=== PATIENT | female | born 1990 | race Caucasian/White ===

== ENCOUNTER 2019-09-07 10:23 | Emergency (ER) | payer OTHER ==
[~2019-09-07] VITALS: Ht 170.2 cm; Wt 135.6 kg
[2019-09-07 10:36] VITALS: BP 155/86
--- NOTE | 2019-09-07 11:28 | RAD ---
Examination: 3 views of the left hand HISTORY: History of fall, pain COMPARISON: None available Findings/ impression: Mild displaced intra-articular fracture of the medial base of the proximal phalanx of the third digit. Electronically signed by: Rangel Walters MD (09/07/2019 11:26 AM) [id number]
--- NOTE | 2019-09-07 11:40 | PHYS DOC ---
Past History Past Medical History: Anxiety, Depression Past Surgical History: Cholecystectomy Alcohol Use: Occasionally Drug Use: None Adult General Chief Complaint Chief Complaint: HAND PROBLEM HPI HPI 29-year-old female presents with left third digit pain. The patient got really drunk 3 days ago and when she came home and was taking off her clothes she fell and struck her finger on something. She knew she hyperextended it. She thought was just sprained, but it continues to be swollen and has significant pain. She wanted to make sure she didn't have a fracture. She denies any other injuries or complaints. Review of Systems Review of Systems Constitutional: Denies fever or chills [] Eyes: Denies change in visual acuity, redness, or eye pain [] HENT: Denies nasal congestion or sore throat [] Respiratory: Denies cough or shortness of breath [] Cardiovascular: No additional information not addressed in HPI [] GI: Denies abdominal pain, nausea, vomiting, bloody stools or diarrhea [] : Denies dysuria or hematuria [] Musculoskeletal: Left third digit pain[] Integument: Denies rash or skin lesions [] Neurologic: Denies headache, focal weakness or sensory changes [] Endocrine: Denies polyuria or polydipsia [] All other systems were reviewed and found to be within normal limits, except as documented in this note. Allergies Allergies Allergies Coded Allergies Type Severity Reaction Last Updated Verified codeine Allergy Unknown 09/07/19 Yes Physical Exam Physical Exam Constitutional: Well developed, well nourished, no acute distress, non-toxic appearance. [] HENT: Normocephalic, atraumatic, bilateral external ears normal, oropharynx moist, no oral exudates, nose normal. [] Eyes: PERRLA, EOMI, conjunctiva normal, no discharge. [] Neck: Normal range of motion, no tenderness, supple, no stridor. [] Cardiovascular:Heart rate regular rhythm, no murmur [] Lungs & Thorax: Bilateral breath sounds clear to auscultation [] Abdomen: Bowel sounds normal, soft, no tenderness, no masses, no pulsatile masses. [] Skin: Warm, dry, no erythema, no rash. [] Back: No tenderness, no CVA tenderness. [] Extremities: Tenderness, swelling, ecchymosis at the base of the left third digit. Patient is able to flex and extend. Cap refill normal[] Neurologic: Alert and oriented X 3, normal motor function, normal sensory function, no focal deficits noted. [] Psychologic: Affect normal, judgement normal, mood normal. [] Current Patient Data Vital Signs Vital Signs Date Time Temp Pulse Resp B/P (MAP) Pulse Ox O2 Delivery O2 Flow Rate FiO2 09/07/19 10:36 98.2 67 18 97 Room Air EKG EKG [] Radiology/Procedures Radiology/Procedures [] Impressions: Examination: 3 views of the left hand HISTORY: History of fall, pain COMPARISON: None available Findings/ impression: Mild displaced intra-articular fracture of the medial base of the proximal phalanx of the third digit. Electronically signed by: Rangel Walters MD (09/07/2019 11:26 AM) [id number] DICTATED AND SIGNED BY: RANGEL WALTERS MD DATE: 09/07/19 1126 CC: ESTEBAN GUTIÉRREZ DO; PCP,NO ~ Course & Med Decision Making Course & Med Decision Making Pertinent Labs and Imaging studies reviewed. (See chart for details) The patient has a fracture of the base of the left third proximal phalanx. Intact. Tendon function appears normal. Place her in a splint and advised that she follow up with orthopedics. She is stable for discharge at this time. [] Dragon Disclaimer Dragon Disclaimer This electronic medical record was generated, in whole or in part, using a voice recognition dictation system. Departure Departure: Impression: Primary Impression: Finger fracture, left Disposition: 01 HOME, SELF-CARE Condition: STABLE Referrals: PCP,NO (PCP) Patient Instructions: Finger Fracture, [id number] Additional Instructions: Please call the [facility] at [phone] to discuss further treatment of your finger fracture. Problem Qualifiers Primary Impression: Finger fracture, left Encounter type: initial encounter Finger: middle finger Fracture type: closed Phalanx: proximal Fracture alignment: nondisplaced Qualified Codes: S62.643A - Nondisplaced fracture of proximal phalanx of left middle finger, initial encounter for closed fracture ESTEBAN GUTIÉRREZ DO Sep 07, 2019 11:40
== END 2019-09-07 11:52 | disposition home or self-care (01) ==
LOC: ER 10:23
DX: S62.643A Nondisplaced fracture of proximal phalanx of left middle finger, initial encounter for closed fracture (principal); Z88.5 Allergy status to narcotic agent; W18.09XA Striking against other object with subsequent fall, initial encounter; Y93.89 Activity, other specified; Y92.89 Other specified places as the place of occurrence of the external cause; Y99.8 Other external cause status
CPT/HCPCS: 29130; 73130; 99284

== ENCOUNTER 2022-03-16 17:07 | Emergency (ER) | payer OTHER ==
[~2022-03-16] VITALS: Ht 170.2 cm; Wt 146.9 kg
[2022-03-16 17:07] VITALS: BP 134/84
[2022-03-16] MEDS ORDERED: AMOX500T PO (18:20)
--- NOTE | 2022-03-16 18:20 | PHYS DOC ---
Past History Past Medical History: Anxiety, Depression (MCKENZIE SANTOS APRN) Past Surgical History: Cholecystectomy (MCKENZIE SANTOS APRN) Alcohol Use: Occasionally Drug Use: None (MCKENZIE SANTOS APRN) General Adult EDM: Chief Complaint: SORE THROAT HPI: HPI: Patient is a 32-year-old female who presents with sore throat. 2 days ago. Denies fever. Complains of loss of voice and feels like she is "swallowing glass". Denies nausea/vomiting/diarrhea. (MCKENZIE SANTOS APRN) Review of Systems: Review of Systems: ROS At least 10 ROS systems have been reviewed and are negative except as documented in the HPI. General: Negative except as outlined in HPI above. Skin: Negative except as outlined in HPI above. HEENT: Negative except as outlined in HPI above. Neck: Negative except as outlined in HPI above. Respiratory: Negative except as outlined in HPI above.. Cardiovascular: Negative except as outlined in HPI above. Abdomen: Negative except as outlined in HPI above. : Negative except as outlined in HPI above. Back/MSK: Negative except as outlined in HPI above. Neuro: Negative except as outlined in HPI above. Psych: Negative except as outlined in HPI above. (MCKENZIE SANTOS APRN) Allergies: Allergies: Allergies Coded Allergies Type Severity Reaction Last Updated Verified codeine Allergy Unknown 09/07/19 Yes (MCKENZIE SANTOS APRN) Physical Exam: PE: Constitutional: Well developed, well nourished, no acute distress, non-toxic appearance. [] HENT: Normocephalic, atraumatic, bilateral external ears normal, oropharynx moist, oral exudates seen, cervical lymphadenopathy Eyes: PERRLA, EOMI, conjunctiva normal, no discharge. [] Neck: Normal range of motion, no tenderness, supple, no stridor. [] Cardiovascular:Heart rate regular rhythm, no murmur [] Lungs & Thorax: Bilateral breath sounds clear to auscultation [] Abdomen: Bowel sounds normal, soft, no tenderness, no masses, no pulsatile masses. [] Skin: Warm, dry, no erythema, no rash. [] Back: No tenderness, no CVA tenderness. [] Extremities: No tenderness, no cyanosis, no clubbing, ROM intact, no edema. [] Neurologic: Alert and oriented X 3, normal motor function, normal sensory function, no focal deficits noted. [] Psychologic: Affect normal, judgement normal, mood normal. [] (MCKENZIE SANTOS APRN) EKG: EKG: [] (MCKENZIE SANTOS APRN) Radiology/Procedures: Radiology/Procedures: [] (MCKENZIE SANTOS APRN) Heart Score: C/O Chest Pain: No Risk Factors: Risk Factors: DM, Current or recent (<one month) smoker, HTN, HLP, family history of CAD, obesity. Risk Scores: Score 0 - 3: 2.5% MACE over next 6 weeks - Discharge Home Score 4 - 6: 20.3% MACE over next 6 weeks - Admit for Clinical Observation Score 7 - 10: 72.7% MACE over next 6 weeks - Early Invasive Strategies (MCKENZIE SANTOS APRN) Course & Med Decision Making: Course & Med Decision Making Pertinent Labs and Imaging studies reviewed. (See chart for details) [] 32 old male presents with a sore throat for 2 days. Afebrile. Rapid strep was positive. Tonsils have exudate and redness. Cervical lymphadenopathy. Patient sent home on antibiotics to treat streptococcal pharyngitis. Discussed [id number] treatments for home help with pain. Ibuprofen and Tylenol. (MCKENZIE SANTOS APRN) Dragon Disclaimer: Dragon Disclaimer: This electronic medical record was generated, in whole or in part, using a voice recognition dictation system. (MCKENZIE SANTOS APRN) Departure Departure: Impression: Primary Impression: Strep pharyngitis Disposition: HOME / SELF CARE / HOMELESS Condition: STABLE Referrals: GREGORIO VALDIVIA MD (PCP) Patient Instructions: Strep Throat Additional Instructions: You were seen in the emergency room for sore throat. You are started on antibiotics to treat for strep throat. Ibuprofen and Tylenol also at home. You can also use Chloraseptic spray to help with sore throat. Symptoms should start resolving the next 24 to 48 hours. Please return emergency with worsening symptoms or concerns EMERGENCY DEPARTMENT GENERAL DISCHARGE INSTRUCTIONS Thank you for coming to [facility] (ED) today and trusting us with you care. We trust that you had a positivie experience in our Emergency Department. If you wish to speak to the department management, you may call the director at [phone]. YOUR FOLLOW UP INSTRUCTIONS ARE FOLLOWS: 1. Do you have a private Doctor? If you do not have a private doctor, please ask for a resource list of physicians or clinics that may be able to assist you with follow up care. 2. The Emergency Physician has interpreted your x-rays. The X-Ray specialist will also review them. If there is a change in the findings, you will be notified in 48 hours when at all possible. 3. A lab test or culture has been done, your results will be reviewed and you will be notified if you need a change in treatment. ADDITIONAL INSTRUCTIONS AND INFORMATION: 1. Your care today has been supervised by a physician who is specially trained in emergency care. Many problems require more than one evaluation for a complete diagnosis and treatment. We recommend that you schedule your follow up appointment as recommended to ensure complete treatment of you illness or injury. If you are unable to obtain follow up care and continue to have a problem, or if your condition worsens, we recommend that you return to the ED. 2. We are not able to safely determine your condition over the phone nor are we able to give sound medical advice over the phone. For these safety reasons, if you call for medical advice we will ask you to come to the ED for further evaluation. 3. If you have any questions regarding these discharge instructions please call the ED at [phone]. SAFETY INFORMATION: In the interest of safety, wellness, and injury prevention; we encourage you to wear your sealbelt, if you smoke; quite smoking, and we encourage family to use a protective helmet for bicycling and other sporting events that present an increased risk for head injury. IF YOUR SYMPTOMS WORSEN OR NEW SYMPTOMS DEVELOP, OR YOU HAVE CONCERNS ABOUT YOUR CONDITION; OR IF YOUR CONDITION WORSENS WHILE YOU ARE WAITING FOR YOUR FOLLOW UP APPOINTMENT; EITHER CONTACT YOUR PRIMARY CARE DOCTOR, THE PHYSICIAN WHOSE NAME AND NUMBER YOU WERE GIVEN, OR RETURN TO THE ED IMMEDIATELY. Scripts Amoxicillin (AMOXICILLIN) 500 Mg Tablet 1 TAB PO BID for strep for 5 Days, #10 TAB Prov: MCKENZIE SANTOS APRN 03/16/22 Attending Signature Attending Signature I have participated in the care of this patient and I have reviewed and agree with all pertinent clinical information above including history, exam, and recommendations. (TUYET ALLEN MD) Attending Signature Attending Signature I have participated in the care of this patient and I have reviewed and agree with all pertinent clinical information above including history, exam, and recommendations. (TUYET ALLEN MD) Dragon Disclaimer This chart was dictated in whole or in part using Voice Recognition software in a busy, high-work load, and often noisy Emergency Department environment. It may contain unintended and wholly unrecognized errors or omissions. (TUYET ALLEN MD) MCKENZIE SANTOS APRN March 16, 2022 18:20 TUYET ALLEN MD March 20, 2022 17:35
== END 2022-03-16 18:50 | disposition home or self-care (01) ==
LOC: ER 17:07
DX: J02.0 Streptococcal pharyngitis (principal); Z88.5 Allergy status to narcotic agent
CPT/HCPCS: 87880; 99283